=== PATIENT | male | born 1960 ===

== ENCOUNTER 2020-10-09 13:46 | Emergency (ER) | payer SELFPAY ==
[~2020-10-09] VITALS: Ht 165.1 cm; Wt 68.2 kg
[~2020-10-09 13:46] MED LIST: CEPHALEXIN500 M1 PO; PEPCID 20MG TAB20 MG PO; SEPTRA DS 8001 TAB PO; VOLTAREN 75 DR75 MG PO
[2020-10-09 13:57] VITALS: TEMP 97.6
[2020-10-09 14:29] LABS: BASO % 0.4 % (0.0-2.0); EOS # 0.2 (0.0-0.7); EOS % 1.9 % (0-4.0); GRAN # 4.7 (1.4-6.5); GRAN % 58.8 % (42.2-75.2); HEMATOCRIT 39.9 % (42.0-52.0); HEMOGLOBIN 13.8 g/dl (13.5-18.0); LYMPH # 2.3 (1.2-3.4); LYMPH % 29.1 % (20.0-51.0); MEAN CELL VOLUME 90 fl (80.0-100.0); MEAN CORPUSCULAR HEMOGLOBIN 31 pg (27.0-31.0); MEAN CORPUSCULAR HGB CONC 35 g/dl (33.0-37.0); MONO # 0.8 (0.1-0.6); MONO % 9.4 % (1.7-9.3); PLATELET COUNT 220 K/mm3 (130-400); RED BLOOD COUNT 4.42 M/mm3 (4.20-5.60); REDCELL DISTRIBUTION WIDTH-CV 13.2 % (11.5-14.5)
[2020-10-09 14:36] LABS: INR 1.1 (0.8-3.0)
[2020-10-09 14:41] LABS: ALANINE AMINOTRANSFERASE 20 U/L (4-49); ALKALINE PHOSPHATASE 121 U/L (50-136); ANION GAP 9 mmol/L (7-16); AST,SGOT 37 U/L (15-37); BILIRUBIN,TOTAL 0.6 mg/dL (0.0-1.0); BLOOD UREA NITROGEN 18 mg/dL (9-20); CALCIUM 8.7 mg/dL (8.4-10.2); CARBON DIOXIDE 26 mmol/L (22-30); CHLORIDE 104 mmol/L (98-107); CREATININE, serum 0.78 (0.66-1.25); GLUCOSE 133 mg/dL (74-106); POTASSIUM 3.6 mmol/L (3.4-5.0); SODIUM 138 mmol/L (137-145); TOTAL PROTEIN 8.2 gm/dL (6.4-8.2)
[2020-10-09 14:52] LABS: TROPONIN-I < 0.012 ng/mL (0.000-0.035)
[2020-10-09] MEDS ORDERED: PEPCID40 MG PO (15:33)
[2020-10-09 15:48] VITALS: BP 112/72; PULSE 62
== END 2020-10-09 15:46 | disposition home or self-care (01) ==
LOC: COL.ER 13:46
PROVIDERS: Emergency Medicine
DX: K21.00 Gastro-esophageal reflux disease with esophagitis, without bleeding (principal)

== ENCOUNTER 2021-02-17 10:26 | Emergency (ER) | payer SELFPAY ==
[~2021-02-17] VITALS: Ht 157.5 cm; Wt 68.2 kg
[~2021-02-17 10:26] MED LIST changes: +PEPCID40 MG PO
[2021-02-17 10:44] VITALS: TEMP 98.2
[2021-02-17 11:51] LABS: BASO % 0.3 % (0.0-2.0); EOS # 0.1 (0.0-0.7); EOS % 1.5 % (0-4.0); GRAN % 51.3 % (42.2-75.2); HEMATOCRIT 41.1 % (42.0-52.0); HEMOGLOBIN 13.9 g/dl (13.5-18.0); LYMPH # 2.2 (1.2-3.4); LYMPH % 37.1 % (20.0-51.0); MEAN CELL VOLUME 91 fl (80.0-100.0); MEAN CORPUSCULAR HEMOGLOBIN 31 pg (27.0-31.0); MEAN CORPUSCULAR HGB CONC 34 g/dl (33.0-37.0); MEAN PLATELET VOLUME 10.4 fl (7.4-10.4); MONO # 0.6 (0.1-0.6); MONO % 9.6 % (1.7-9.3); PLATELET COUNT 213 K/mm3 (130-400); REDCELL DISTRIBUTION WIDTH-CV 12.8 % (11.5-14.5)
[2021-02-17 11:57] LABS: INR 1.1 (0.8-3.0); PROTHROMBIN TIME 12.3 SECONDS (9.7-12.8)
[2021-02-17 12:00] LABS: ALANINE AMINOTRANSFERASE 31 U/L (4-49); ALBUMIN 3.9 gm/dL (3.5-5.0); ALKALINE PHOSPHATASE 161 U/L (50-136); ANION GAP 7 mmol/L (7-16); AST,SGOT 41 U/L (15-37); BILIRUBIN,TOTAL 0.5 mg/dL (0.0-1.0); BLOOD UREA NITROGEN 15 mg/dL (9-20); CALCIUM 8.1 mg/dL (8.4-10.2); CARBON DIOXIDE 22 mmol/L (22-30); CHLORIDE 107 mmol/L (98-107); CREATININE, serum 0.69 (0.66-1.25); GLUCOSE 100 mg/dL (74-106); POTASSIUM 3.4 mmol/L (3.4-5.0); SODIUM 136 mmol/L (137-145); TOTAL PROTEIN 7.8 gm/dL (6.4-8.2)
[2021-02-17 12:13] LABS: TROPONIN-I < 0.012 ng/mL (0.000-0.035)
[2021-02-17 12:17] LABS: COLLECTION METHOD CLEAN CATCH
[2021-02-17 12:22] LABS: LIPASE 111 U/L (23-300)
[2021-02-17 12:23] LABS: MUCOUS Present /lpf; PH 5 (5-8); SQUAMOUS EPITHELIAL None Seen /hpf; URINE APPEARANCE Clear; URINE BACTERIA None Seen /hpf; URINE BILIRUBIN Negative (NEGATIVE); URINE BLOOD Negative (NEGATIVE); URINE COLOR Yellow; URINE GLUCOSE Negative (NEGATIVE); URINE KETONE Negative (NEGATIVE); URINE LEUKOCYTE ESTERASE Negative (NEGATIVE); URINE NITRATE Negative (NEGATIVE); URINE PROTEIN(semi-quant) Negative (NEGATIVE); URINE RBC 0-2 /hpf; URINE UROBILINOGEN Negative (NEGATIVE); URINE WBC 0-2 /hpf
[2021-02-17] MEDS ORDERED: CIPRO 500MG TA500 MG PO (13:47)
[2021-02-17] MEDS ORDERED: FLAGYL500 MG PO (13:47)
[2021-02-17 14:07] VITALS: BP 104/63; PULSE 55
== END 2021-02-17 14:16 | disposition home or self-care (01) ==
LOC: COL.ER 10:26
PROVIDERS: Nurse Practitioner Primary Care
DX: K52.9 Noninfective gastroenteritis and colitis, unspecified (principal); R50.9 Fever, unspecified; Z20.822 Contact with and (suspected) exposure to COVID-19
CPT/HCPCS: J2405; J7120; Q9967

== ENCOUNTER 2021-07-26 13:18 | Emergency (ER) | payer SELFPAY ==
[~2021-07-26] VITALS: Ht 162.6 cm; Wt 63.6 kg
[~2021-07-26 13:18] MED LIST changes: +CIPRO 500MG TA500 MG PO; +FLAGYL500 MG PO
[2021-07-26 13:34] VITALS: TEMP 97.3
[2021-07-26 16:31] VITALS: BP 146/79; PULSE 83
== END 2021-07-26 16:40 | disposition home or self-care (01) ==
LOC: COL.ER 13:18
DX: S59.902A Unspecified injury of left elbow, initial encounter (principal); X58.XXXA Exposure to other specified factors, initial encounter

== ENCOUNTER 2021-07-29 14:23 | Emergency (ER) | payer SELFPAY ==
[~2021-07-29] VITALS: Ht 157.5 cm; Wt 61.4 kg
[2021-07-29 14:56] VITALS: BP 125/67; TEMP 98.2
[2021-07-29 16:36] VITALS: PULSE 60
== END 2021-07-29 16:36 | disposition home or self-care (01) ==
LOC: COL.ER 14:23
DX: B34.9 Viral infection, unspecified (principal); Z20.822 Contact with and (suspected) exposure to COVID-19

== ENCOUNTER 2023-06-18 12:41 | Emergency (ER) | payer SELFPAY ==
[~2023-06-18] VITALS: Ht 160 cm; Wt 75.0 kg
[2023-06-18] MEDS ORDERED: ZITHROMAX Z PA250 MG PO (15:17)
[2023-06-18 15:20] VITALS: BP 126/71; PULSE 70; TEMP 99
== END 2023-06-18 15:22 | disposition home or self-care (01) ==
LOC: COL.ER 12:41
DX: J40 Bronchitis, not specified as acute or chronic (principal); Z28.310 Unvaccinated for COVID-19